=== PATIENT | female | born 1970 | race Caucasian/White ===

== ENCOUNTER 2022-06-12 09:51 | Emergency (ER) | payer BC, SELFPAY ==
[2022-06-12 11:11] VITALS: BP 151/92; PULSE 97; RESP 14; TEMP 36.4; O2SAT 97; BMI 34.3
[2022-06-12 12:00] VITALS: BP 151/92; PULSE 97; RESP 14; TEMP 36.4; O2SAT 97
[2022-06-12 12:32] LABS: Add Urine Microscopic? NO; Charge for UA Resulting for Rev
[2022-06-12 12:33] LABS: Bilirubin Urine Neg (Negative); Blood Urine Neg (Negative); Glucose Urine UA Norm (Normal); Ketones Urine Negative (Negative); Leukocyte Esterase Urine Negative (Negative); Nitrate Urine Negative (Negative); Protein Urine Neg (Negative); Urine Appearance Clear (CLEAR); Urine Color Yellow (Yellow); Urobilinogen Urine Norm (Negative); pH Urine 7 (5-7)
[2022-06-12] MEDS: ondansetron 2 mg/ML SDV 2 mL 4 MG IVP (12:38)
[2022-06-12] MEDS: sodium chloride 0.9% 1,000 ML 999 ML IV (12:38)
--- NOTE | 2022-06-12 12:38 | CT_ITS ---
WS: [id number] CT ABDOMEN PELVIS TECHNIQUE: Noncontrast CT of the abdomen and pelvis with coronal and sagittal reformatted images. CLINICAL INFORMATION: Abdominal pain COMPARISON: CT 2017 DLP: 849.[address] scans at [facility] use at least one of these dose optimization techniques: automated e xposure control; mA and/or kV adjustment per patient size (includes targeted exams where dose is matc hed to clinical indication); or iterative reconstruction. FINDINGS: Normal appendix in the RIGHT lower quadrant. No hydronephrosis in either kidney. No obstructing renal or ureteral calculi. Pelvic phleboliths. Lung bases are well aerated. Slight bibasilar atelectasis. Noncontrast liver and spleen are normal. Normal noncontrast pancreas. Normal GE junction. Normal caliber abdominal aorta. Normal sigmoid colon. Sigmoid diverticulosis. No evidence of acute diverticulitis. No evidence of high-grade small or large bowel obstruction. No free fluid in the abdomen or pelvis. CT/CT abdomen pelvis con [id number] IMPRESSION: 1. Normal appendix in the RIGHT lower quadrant. No evidence of acute appendici tis. 2. No hydronephrosis in either kidney. No obstructing renal or ureteral calcul i. 3. Sigmoid diverticulosis. No evidence of acute diverticulitis. 4. No other acute findings.
--- NOTE | 2022-06-12 12:43 | W.ED.ABDPA2 ---
HPI - Abdominal Pain General: Chief Complaint: Abdominal Pain Stated Complaint: abd pain Time Seen by Provider: 06/12/22 12:10 Source: patient Mode of arrival: ambulatory History of Present Illness: 52-year-old female presents emergency room complaining of right lower quadrant abdominal pain. Patient denies any fever sweats chills dysuria urgency or frequency. No vomiting or diarrhea. She is previous had a tubal ligation and has an subsequent hysterectomy has not had appendectomy or cholecystectomy. Remaining still seems to relieve the pain any movement or palpation worsens it. MD elicited complaint: abdominal pain Onset (ago): day(s) Pain Consistency: intermittent Location: RLQ Severity: moderate Quality: cramping Radiation: none Exacerbating factors: movement Relieving factors: rest Associated Symptoms: Reports nausea and poor appetite; Denies anorexia, belching, bloating, change in bowel habits, change in stool character, chills, coffee ground emesis, constipation, GI cramping, diarrhea, dyspepsia, dysuria, excessive flatus, fever(s), heartburn, hematochezia, hematuria, hematemesis, fecal incontinence, loose stools, melena, syncope and vomiting Review of Systems Const: Denies: fever(s) or chills ENMT: Denies: throat pain, ear or mastoid pain, nasal discharge or nasal congestion Card: Denies: syncope Resp: Denies: dyspnea, productive cough or non-productive cough GI: Reports: abdominal pain and nausea; Denies: vomiting, hematemesis, coffee ground emesis, heartburn, diarrhea, constipation, bloating, GI cramping, belching, excessive flatus, fecal incontinence, change in bowel habits, change in stool character, hematochezia or melena : Denies: dysuria, urinary frequency, urinary urgency or hematuria Skin/Breast: Denies: rash or pruritus PFSH ED PFSH: Surgical History (Updated 06/12/22 @ 17:22 by Walter Hayes DO) H/O tubal ligation H/O: hysterectomy Social History (Updated 06/12/22 @ 17:23 by Walter Hayes DO) Smoking and tobacco status: current every day smoker Alcohol intake: current Alcohol intake frequency: holidays/special occasions only Physical Exam Const: COMMON NORMALS: no acute distress GENERAL APPEARANCE: cooperative and comfortable ORIENTATION/CONSCIOUSNESS: Yes awake, Yes oriented to person, Yes oriented to place and Yes oriented to time HENMT: COMMON NORMALS: normocephalic, atraumatic and hearing grossly normal bilaterally HEAD & SCALP: normocephalic and atraumatic Resp: COMMON NORMALS: normal respiratory effort, No retractions, No use of accessory muscles and clear to auscultation bilaterally AUSCULTATION: clear to auscultation bilaterally Cardio: COMMON NORMALS: regular rate, regular rhythm and No murmurs present (Cardio) RATE: regular rate RHYTHM: regular rhythm GI: COMMON NORMALS: No hepatosplenomegaly present AUSCULTATION: Yes normoactive bowel sounds PALPATION: Yes Tenderness to palpation present (GI) Details: RLQ, No Guarding due to palpation present (GI) and Yes No hepatosplenomegaly present Extremity: COMMON NORMALS: normal to inspection, capillary refill normal, no clubbing, cyanosis or edema, no calf tenderness and no pedal edema Neuro: SENSORIUM/ORIENTATION: Yes oriented to person, Yes oriented to place and Yes oriented to time Skin: COMMON NORMALS: no rashes or lesions noted GENERAL SKIN EXAM: no rashes or lesions noted Course Vital Signs: Vital signs: Vital Signs Temperature 97.6 F 06/12/22 12:00 Pulse Rate 97 06/12/22 14:31 Respiratory Rate 14 06/12/22 14:31 Blood Pressure 151/92 06/12/22 14:31 Pulse Oximetry 97 06/12/22 14:31 Oxygen Delivery Me thod 06/12/22 12:00 MDM - Abdominal Pain Medical Decision Making Patient has pain in the right lower quadrant CT is negative White count is normal urine is negative. Discharge patient will if she has any worsening symptoms return to the emergency room. Medical Records I reviewed the patient's medical records. Lab Data I reviewed the patient's lab results. 06/12/22 12:44 06/12/22 12:44 Labs/Radiology: Radiology Impressions Abdomen/Pelvis CT 06/12/22 12:38 IMPRESSION: 1. Normal appendix in the RIGHT lower quadrant. No evidence of acute appendicitis. 2. No hydronephrosis in either kidney. No obstructing renal or ureteral calculi. 3. Sigmoid diverticulosis. No evidence of acute diverticulitis. 4. No other acute findings. Laboratory Results WBC 8.0 10^3/uL (4.0-10.0) 06/12/22 12:44 RBC 5.24 10^6/uL (4.1-5.3) 06/12/22 12:44 Hgb 15.0 g/dL (11.5-15.3) 06/12/22 12:44 Hct 45.4 % (37.0-47.0) 06/12/22 12:44 MCV 86.6 fl (81-99) 06/12/22 12:44 MCH 28.6 pg (28.0-34.0) 06/12/22 12:44 MCHC 33.0 g/dL (30.0-36.0) 06/12/22 12:44 RDW 12.9 % (12.1-15.1) 06/12/22 12:44 Plt Count 205 10^3/cmm (130-400) 06/12/22 12:44 MPV 11.6 fL (7.4-10.4) H 06/12/22 12:44 Neut % (Auto) 51.3 % 06/12/22 12:44 Lymph % (Auto) 42.5 % 06/12/22 12:44 Galax % (Auto) 5.4 % 06/12/22 12:44 Eos % (Auto) 0.0 % 06/12/22 12:44 Baso % (Auto) 0.5 % 06/12/22 12:44 Neut # (Auto) 4.09 10^3/uL (1.8-7.7) 06/12/22 12:44 Lymph # (Auto) 3.4 10^3/uL (0.8-4.8) 06/12/22 12:44 Galax # (Auto) 0.4 10^3/uL (0.2-0.9) 06/12/22 12:44 Eos # (Auto) 0.0 10^3/uL (0.0-0.8) 06/12/22 12:44 Baso # (Auto) 0.0 10^3/uL (0.0-0.1) 06/12/22 12:44 Nucleated RBC % (auto) 0 % 06/12/22 12:44 Nucleated RBCs # 0.0 /100WBC 06/12/22 12:44 Sodium 139 mmol/L (136-145) 12/26/22 12:44 Potassium 3.7 mmol/L (3.5-5.1) 06/12/22 12:44 Chloride 103 mmol/L (98-107) 06/12/22 12:44 Carbon Dioxide 25 mmol/L (22-29) 06/12/22 12:44 Anion Gap 14.7 (5-19) 06/12/22 12:44 BUN 10 mg/dL (6-20) 06/12/22 12:44 Creatinine 0.7 mg/dL (0.5-0.9) 06/12/22 12:44 GFR Calculation 88.2 mL/min (90-130) L 06/12/22 12:44 Glucose 89 mg/dL (65-115) 06/12/22 12:44 Calculated Osmolality 287 mOsm/kg (285-295) 06/12/22 12:44 Calcium 9.4 mg/dL (8.5-10.5) 06/12/22 12:44 Total Bilirubin 0.3 mg/dL (0.15-1.2) 06/12/22 12:44 AST 16 U/L (0-32) 06/12/22 12:44 ALT 12 U/L (0-33) 06/12/22 12:44 Alkaline Phosphatase 87 U/L (35-105) 06/12/22 12:44 Total Protein 7.5 g/dL (6.6-8.7) 06/12/22 12:44 Albumin 4.6 g/dL (3.5-5.2) 06/12/22 12:44 Globulin 2.9 g/dL (1.3-4.6) 06/12/22 12:44 Lipase 21 U/L (13-60) 06/12/22 12:44 Urine Color Yellow (Yellow) 06/12/22 12:25 Urine Appearance Clear (CLEAR) 06/12/22 12:25 Urine pH 7 (5-7) 06/12/22 12:25 Ur Specific Humphrey 1.010 (1.005-1.030) 06/12/22 12:25 Urine Protein Neg (Negative) 06/12/22 12:25 Urine Glucose (UA) Norm (Normal) 06/12/22 12:25 Urine Ketones Negative (Negative) 06/12/22 12:25 Urine Blood Neg (Negative) 06/12/22 12:25 Urine Nitrate Negative (Negative) 06/12/22 12:25 Urine Bilirubin Neg (Negative) 06/12/22 12:25 Urine Urobilinogen Norm mg/dL (Negative) 06/12/22 12:25 Ur Leukocyte Esterase Negative (Negative) 06/12/22 12:25 Discharge Plan Discharge Patient Disposition: Home Clinical Impression: Abdominal pain, Back pain Condition: Stable Prescriptions: New diclofenac sodium 75 mg tablet,delayed release (DR/EC) 75 mg PO Q12H PRN (Reason: pain) Qty: 20 0RF Discharge Orders: Discharge ED (Routine); Ordered 06/12/22 Ordered By: Walter Hayes Referrals: Jesus Rob MD [Primary Care Provider] - Patient Instructions: Abdominal Pain (ED), Opioid Safety, Pain Management Activity Restrictions/Additional Instructions: You are seen today for abdominal pain. Your CT was normal your liver functions and white count were also normal as was the urinalysis. Suspect this is more musculoskeletal in nature you can try the diclofenac 1 every 12 hours as needed if not improving follow-up with your primary care doctor. Coding Level of Care Code ED New Business Clerk for Chg Fwd Exam Detailed
[2022-06-12 12:56] LABS: Basophils % 0.5 %; Hematocrit 45.4 % (37.0-47.0); Lymphocytes # 3.4 10^3/uL (0.8-4.8); Lymphocytes % 42.5 %; Mean Corpuscular Hemoglobin 28.6 pg (28.0-34.0); Mean Corpuscular Volume 86.6 fl (81-99); Mean Platelet Volume 11.6 fL (7.4-10.4); Monocytes # 0.4 10^3/uL (0.2-0.9); Monocytes % 5.4 %; Neutrophils # 4.09 10^3/uL (1.8-7.7); Neutrophils % 51.3 %; Nucleated Red Blood Cells % 0 %; Platelet Count 205 10^3/cmm (130-400); Red Blood Count 5.24 10^6/uL (4.1-5.3); Red Cell Distribution Width 12.9 % (12.1-15.1)
[2022-06-12 13:13] LABS: Alanine Aminotransferase 12 U/L (0-33); Albumin Level 4.6 g/dL (3.5-5.2); Alkaline Phosphatase 87 U/L (35-105); Anion Gap 14.7 (5-19); Aspartate Amino Transferase 16 U/L (0-32); Blood Urea Nitrogen 10 mg/dL (6-20); Calcium 9.4 mg/dL (8.5-10.5); Carbon Dioxide 25 mmol/L (22-29); Chloride 103 mmol/L (98-107); Creatinine Clr Calc Pharmacy 103.7294; Globulin 2.9 g/dL (1.3-4.6); Glomerular Filtration Rate 88.2 mL/min (90-130); Glucose 89 mg/dL (65-115); Lipase 21 U/L (13-60); Osmolality Calculated 287 mOsm/kg (285-295); Potassium 3.7 mmol/L (3.5-5.1); Sodium 139 mmol/L (136-145); Total Bilirubin 0.3 mg/dL (0.15-1.2); Total Protein 7.5 g/dL (6.6-8.7)
[2022-06-12 14:31] VITALS: BP 151/92; PULSE 97; RESP 14; O2SAT 97
== END 2022-06-12 14:35 | disposition home or self-care (01) ==
PROVIDERS: Emergency Provider Family Medicine; PCP Family Medicine
DX: R10.31 Right lower quadrant pain (principal); M54.9 Dorsalgia, unspecified; F17.210 Nicotine dependence, cigarettes, uncomplicated
CPT/HCPCS: 74176; 80053; 81003; 83690; 85025; 96361; 96374; 99285; J2405; J7030

== ENCOUNTER 2025-02-23 18:09 | Emergency (ER) | payer SELFPAY ==
--- OUTSIDE RECORDS SUMMARY | 2025-02-23 18:16 | XMS_ITS | Encounter Summary ---
Author Organization [facility] Address [address] [place] [address] Care Team Providers Care Director Software Quality Assurance Name Role Phone Jesus Rob MD Primary Care Provider [phone] Encounter Details Date Type Department Care Team (Latest Contact Info) Description 05/04/2000 Outpatient Historical HIS [facility] Miguel Quiñones NO ADDRESS ON FILE Cervicalgia (Primary Dx); Goiter, unspecified Social History Tobacco Use Types Packs/Day Years Used Date Smoking Tobacco: Never Assessed Comments Unknown Sex and Gender Information Value Date Recorded Sex Assigned at Not on file 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
--- OUTSIDE RECORDS SUMMARY | 2025-02-23 18:16 | XMS_ITS | Clinical Summary ---
Author Organization [facility] Address [address] [place] [address] Care Team Providers Care International Marketing Specialist Name Role Phone Jesus Rob MD Primary Care Provider [phone] Allergies No known active allergies Medications acetaminophen (TYLENOL) 500 mg tablet Take 1,000 mg by mouth every 6 hours as needed. Active Active Problems No known active problems Family History Medical History Relation Name Comments Heart Disease Father Hypertension Father Kidney Disease Father No Known Problems Mother Cancer Sister 1 cervical Cancer Sister 5 cervical No Known Problems Son 1 No Known Problems Son 2 No Known Problems Son 3 Breast Cancer Neg Hx Relation Name Status Comments Brother 1 Alive Brother 2 Alive Brother 3 Alive Father Alive Mother Alive Sister 1 Alive Sister 2 Alive Sister 3 Alive Sister 4 Alive Sister 5 Alive Sister 6 Alive Sister 7 Alive Son 1 Alive Son 2 Alive Son 3 Alive Social History Tobacco Use Types Packs/Day Years Used Date Smoking Tobacco: Every Day Cigarettes 1 30 Smokeless Tobacco: Never Tobacco Cessation:Ready to Q uit: Yes Alcohol Use Standard Drinks/Week Comments Not Currently 0 (1 standard drink = 0.6 oz pur e alcohol) Comments No Sex and Gender Information Value Date Recorded Sex Assigned at Not on file 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 Gender Identity Not on file Sexual Orientation Not on file Last Filed Vital Signs Vital Sign Reading Time Taken Comments Blood Pressure 123/88 02/27/2020 10:14 AM CDT Pulse 73 02/27/2020 10:14 AM CDT Temperature 36.4 C (97.6 F) 03/31/2019 3:34 PM CDT Respiratory Rate 18 03/31/2019 4:25 PM CDT Oxygen Saturation 97% 02/27/2020 10:14 AM CDT Inhaled Oxygen Concentration - - Weight 83 kg (183 lb) 02/27/2020 10:14 AM CDT Height 162.6 cm (5' 4 ) 02/27/2020 10:14 AM CDT Body Mass Index 31.41 02/27/2020 10:14 AM CDT Plan of Treatment Health Maintenance Due Date Last Done Comments DTAP/TDAP/TD VACCINES (1 - Tdap) 1990 HEPATITIS B VACCINES (1 of 3 - 19+ 3-dose series) 04/19 HPV/Cotest (21-29) 1992 HPV/Cotest (30-65) 2001 CERVICAL CANCER SCREENING 04/24/2004 PAP SMEAR 04/24/2004 04/24/2001 BREAST CANCER SCREENING 2011 COLORECTAL SCREENING 2016 Colorectal Cancer Screening 2016 FIT-DNA Q 3 years 2016 FIT/FOBT Q 1 year 2016 Flex Sig/CT Colonography Q 5 years 2016 ZOSTER VACCINE (1 of 2) 2021 INFLUENZA VACCINE (#1) 2025 Medical Devices Implanted Type Area Barrel Tester Device Identifier Shelf Expiration Date Model / Serial / Lot Mammary Saline 600-720ml 350-2600 - [id number] Implanted:Qty: 1 on 03/31/2019 by Alka Tong MD at [facility] Mammary Right: Breast MENTOR MARGARITA 08/13/2022 350-2600 / [id number] Description:625mlof injectab le 0.9% sodium chloride Mammary Saline 600-720ml 350-2600 - [id number] Implanted:Qty: 1 on 03/31/2019 by Alka Tong MD at [facility] Mammary Left: Breast MENTOR MARGARITA 11/11/2022 350-2600 / [id number] Description:650mL of injecta ble 0.9% sodium chloride Insurance Advance Directives For more information, please contact: [phone] * Full Code (Latest Code Status on File) Date Activated Date Inactivated Comments 03/31/2019 12:02 PM 03/31/2019 7:03 PM Care Teams International Marketing Specialist Relationship Specialty Start Date End Date Jesus Rob MD [address] [phone] PCP - General Family Practice 03/25/19
--- OUTSIDE RECORDS SUMMARY | 2025-02-23 18:16 | XMS_ITS | Encounter Summary ---
Author Organization [employer] [facility] Address [address] [place] [address] Care [address] Project Manager Name Role Phone Jesus Rob MD Primary Care Provider [phone] Encounter Details Date Type Department Care Team (Latest Contact Info) Description 10/08/2000 Outpatient Historical HIS [facility] Miguel Quiñones NO ADDRESS ON FILE Periapical abscess (Primary Dx) Social History Tobacco Use Types Packs/Day Years Used Date Smoking Tobacco: Never Assessed Comments Unknown Sex and Gender Information Value Date Recorded Sex Assigned at Not on file 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
--- OUTSIDE RECORDS SUMMARY | 2025-02-23 18:17 | XMS_ITS | Clinical Summary ---
Author Organization [facility] Address [address] [facility] Attn: Epic Prelude ADT [place]DA [phone] Care Team Providers Care Binder Lockstitch Name Role Phone Jesus Rob MD Primary Care Provider [phone] Allergies No known active allergies Medications acetaminophen (TYLENOL) 500 mg tablet Take 1,000 mg by mouth every 6 hours as needed. 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 Gender Identity Not on file Sexual Orientation Not on file Last Filed Vital Signs Vital Sign Reading Time Taken Comments Blood Pressure 123/88 02/27/2020 10:14 AM CDT Pulse 73 02/27/2020 10:14 AM CDT Temperature 36.4 C (97.6 F) 03/31/2019 3:34 PM CDT Respiratory Rate 18 03/31/2019 4:25 PM CDT Oxygen Saturation - - Inhaled Oxygen Concentration - - Weight 83 kg (183 lb) 02/27/2020 10:14 AM CDT Height 162.6 cm (5' 4 ) 02/27/2020 10:14 AM CDT Body Mass Index 31.41 02/27/2020 10:14 AM CDT Plan of Treatment Health Maintenance Due Date Last Done Comments DTAP/TDAP/TD VACCINES (1 - Tdap) 1990 HEPATITIS B VACCINES (1 of 3 - 19+ 3-dose series) 04/19 HPV/Cotest (21-29) 1992 CERVICAL CANCER SCREENING 2001 HPV/Cotest (30-65) 2001 PAP SMEAR 2001 BREAST CANCER SCREENING 2011 COLORECTAL SCREENING 2016 Colorectal Cancer Screening 2016 FIT-DNA Q 3 years 2016 FIT/FOBT Q 1 year 2016 Flex Sig/CT Colonography Q 5 years 2016 ZOSTER VACCINE (1 of 2) 2021 INFLUENZA VACCINE (#1) 2025 Medical Devices Implanted Type Area Certified Medical Transcriptionist Device Identifier Shelf Expiration Date Model / Serial / Lot Mammary Saline 600-720ml 350-2600 - [id number] Implanted:Qty: 1 on 03/31/2019 by Alka Tong MD Mammary Right: Breast MENTOR MARGARITA 08/13/2022 350-2600 / [id number] Description:625mlof injectab le 0.9% sodium chloride Mammary Saline 600-720ml 350-2600 - [id number] Implanted:Qty: 1 on 03/31/2019 by Alka Tong MD Mammary Left: Breast MENTOR MARGARITA 11/11/2022 350-2600 / [id number] Description:650mL of injecta ble 0.9% sodium chloride Care Teams Binder Lockstitch Relationship Specialty Start Date End Date Jesus Rob MD [address] [place] [phone] PCP - General Family Practice 03/25/19
--- OUTSIDE RECORDS SUMMARY | 2025-02-23 18:17 | XMS_ITS | Encounter Summary ---
Author Organization [employer] [facility] Address [address] [place] [address] Care Team Providers Care Infrastructure Manager Name Role Phone Jesus Rob MD Primary Care Provider [phone] Encounter Details Date Type Department Care Team (Latest Contact Info) Description 04/24/2001 Outpatient Historical HIS [facility] Durga Hauser MD [address] [place] [address] CARBUNCLE NOS (Primary Dx); TOBACCO USE DISORDER; SCREENING MAL NEOP-CERVIX; SCREENING MAL NEOP-SITE NEC Social History Tobacco Use Types Packs/Day Years Used Date Smoking Tobacco: Never Assessed Comments Unknown Sex and Gender Information Value Date Recorded Sex Assigned at Not on file 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
[2025-02-23 18:41] VITALS: BP 149/85; PULSE 94; TEMP 36.8; O2SAT 96
--- NOTE | 2025-02-23 20:17 | CTR_ITS ---
PROCEDURE INFORMATION: Exam: CT Head Without Contrast Exam date and time: 02/23/2025 8:26 PM Age: 54 years old Clinical indication: Pain; Headache not specified; Additional info: PAEZ TECHNIQUE: Imaging protocol: Computed tomography of the head without contrast. Radiation optimization: All CT scans at this facility use at least one of these dose optimization techniques: automated exposure control; mA and/or kV adjustment per patient size (includes targeted exams where dose is matched to clinical indication); or iterative reconstruction. COMPARISON: No relevant prior studies available. RADIATION DOSE METRICS: Total DLP (mGy-cm): 1106.98 FINDINGS: Brain: Normal. No hemorrhage. Unremarkable white matter. No mass effect. Cerebral ventricles: No ventriculomegaly. Paranasal sinuses: Visualized sinuses are unremarkable. No fluid levels. Mastoid air cells: Visualized mastoid air cells are well aerated. Bones: Unremarkable. No acute fracture. Soft tissues: Unremarkable. CT/CT head wo con* [id number] IMPRESSION: No acute intracranial abnormality.
--- NOTE | 2025-02-23 20:17 | ECG_ITS ---
[facility] Test Date: 2025-02-23 Pat Name: Sujey Singh Department: Room: Gender: Female Physical Geographer: : 1970 Requested By: Eddie De Los Santos Order Number: [id number] Santillan MD: Deepak Aponte M.D. Measurements Intervals [place] Rate: 77 P: 60 SC: 131 QRS: 47 QRSD: 86 T: 68 QT: 401 QTc: 456 Interpretive Statements SINUS RHYTHM No previous ECG available for comparison Electronically Signed On 02-25-2025 23:14:30 CDT by Deepak Aponte M.D. [email or web address] [id number]
--- NOTE | 2025-02-23 20:19 | ED_ITS ---
HPI - Headache General: Chief Complaint: Headache Stated Complaint: Urgent Care Sent\Blood Clot Rt Eye Time Seen by Provider: 02/23/25 19:52 Source: patient Mode of arrival: ambulatory Limitations: no limitations History of Present Illness: 54-year-old female states that at 4:00 t diana she was driving she states she had a period where she had a headache and then had vision loss in both eyes. She states that lasted for a minute or 2 and she has got her vision back she states she still feels like she has some blurry vision in the right eye does have a headache that on the right side as well currently she rates a 4 out of 10 has had a history of migraine in the past she denies any slurred speech any weakness any other symptoms. Associated symptoms: Deny chest pain, fever(s), nausea, rash or vomiting Related Data Previous Rx's ?Medication ?Instructions ?Recorded diclofenac sodium 75 mg 75 mg PO Q12H PRN pain #20 t abs 06/12/22 tablet,delayed release aspirin 81 mg capsule 81 mg PO DAILY #30 caps 02/09 Allergies Allergy/AdvReac Type Severity Reaction Status Date / Time No Known Allergies Allergy Verified 02/23/25 18:47 Review of Systems Const: Denies: fever(s), chills, body aches or change in appetite ENMT: Denies: throat pain or dental pain Card: Denies: chest pain Resp: Denies: dyspnea GI: Denies: abdominal pain, nausea, vomiting or diarrhea Musc: Denies: neck pain or back pain Skin/Breast: Denies: rash Neuro: Reports: headache(s) PFSH ED PFSH: Surgical History (Updated 06/12/22 @ 17:22 by Walter Hayes DO) H/O: hysterectomy H/O tubal ligation Social History (Updated 06/12/22 @ 17:23 by Walter Hayes DO) Smoking and tobacco/nicotine status: current every day tobacco/nicotine user Alcohol intake: current Alcohol intake frequency: holidays/special occasions only Physical Exam Const: COMMON NORMALS: no acute distress, patient oriented x3 and healthy appearing HENMT: COMMON NORMALS: normocephalic and atraumatic HEAD & SCALP: normo cephalic and atraumatic Eye: COMMON NORMALS: conjunctivae normal CONJUNCTIVA: Yes conjunctivae normal Neck/C-Spine: COMMON NORMALS: full ROM and supple Chest: COMMONS NORMALS: normal inspection of the chest Resp: COMMON NORMALS: normal respiratory effort, No retractions, No use of accessory muscles and clear to auscultation bilaterally AUSCULTATION: clear to auscultation bilaterally Cardio: COMMON NORMALS: regular rate, regular rhythm and No murmurs present (Cardio) RATE: regular rate RHYTHM: regular rhythm Extremity: COMMON NORMALS: normal to inspection and full ROM Neuro: COMMON NORMALS: patient oriented x3, moves all extremities and no focal motor deficits Psych: COMMON NORMALS: mental status grossly normal, Normal thought process present and cooperative THOUGHT PROCESS: Normal thought process present Skin: COMMON NORMALS: no rashes or lesions noted and no wounds GENERAL SKIN EXAM: no rashes or lesions noted Course Vital Signs: Vital signs: Vital Signs Temperature 98.2 F 02/23/25 18:41 Pulse Rate 94 02/23/25 18:41 Blood Pressure 149/85 02/23/25 18:41 Pulse Oximetry 96 02/23/25 18:41 Oxygen Delivery Me thod Room Air 02/23/25 18:41 MDM - Headache Medical Decision Making Patient presents here with period of blindness both eyes lasted short time she did have a headache her neuroexam here is benign vision is back to normal here visual acuity was normal she has no signs of giant cell arteritis no signs of tenderness on the right side of her head or the left Medical Records I reviewed the patient's medical records. Lab Data I reviewed the patient's lab results. Radiology Impressions Head CT 02/23/25 20:17 IMPRESSION: No acute intracranial abnormality. All radiology interpretation(s) finalized by discharge EKG Data EKG 1: I personally reviewed and interpreted this EKG as follows: EKG interpretation date: 02/23/25 EKG interpretation time: 20:17 Interpretation: nsr hr [address] elevation qrs 86 qtc 433 Discharge Plan Discharge Patient Disposition: Home Clinical Impression: Headache, Amaurosis fugax, both eyes Condition: Stable Prescriptions: New aspirin 81 mg capsule 81 mg PO DAILY Qty: 30 0RF No Action diclofenac sodium 75 mg tablet,delayed release (DR/EC) 75 mg PO Q12H PRN (Reason: pain) Qty: 20 0RF Discharge Orders: Discharge ED (Routine); Ordered 02/23/25 Ordered By: Eddie De Los Santos Referrals: [facility] [Outside] - 4-7 days Grecia Rob PA [Primary Care Provider, [facility] [employer]] Discharge Diet: Advance as tolerated Discharge Activity: Resume usual activity Patient Instructions: Acute Headache (ED) Print Language: Lao Coding Level of Care Code ED 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
--- NOTE | 2025-02-23 20:54 | PC.NURSE ---
visiual acuity test, right eye blurred 20/40, left eye clear 20/20.
== END 2025-02-23 21:05 | disposition home or self-care (01) ==
PROVIDERS: Emergency Provider Emergency Medicine; PCP Physician Assistant
DX: R51.9 Headache, unspecified (principal); G45.3 Amaurosis fugax; Z72.0 Tobacco use
CPT/HCPCS: 70450; 93005; 99284

== ENCOUNTER 2025-04-03 06:02 | Outpatient (CLI) | payer BC, MEDICAID, SELFPAY ==
--- NOTE | 2025-04-03 06:15 | USCV_ITS ---
Sujey Singh Age: 54 Gender: F : 1970 Exam Date: 04/03/2025 06:36 Ordering Phys: Grecia Rob Technologist: Moustapha Hodges [place] [facility] [place]: amaurosis fugax BP: 149 / 85 HR: 70 Rhythm: Sinus Technical Quality: Adequate MEASUREMENTS (Male / Female) Normal Values 2D ECHO LV Diastolic Diameter PLAX 4.1 cm 4.2 - 5.9 / 3.9 - 5.3 cm IVS Diastolic Thickness 0.9 cm 0.6 - 1.0 / 0.6 - 0.9 cm IVS Systolic Thickness 1.1 cm LVPW Diastolic Thickness 1.0 cm 0.6 - 1.0 / 0.6 - 0.9 cm LVPW Systolic Thickness 1.6 cm LVOT Diameter 2.1 cm LV Ejection Fraction 2D Teich 56.4 % LV Ejection Fraction MOD 4C 63.4 % LV Ejection Fraction MOD 2C 65.7 % LV Ejection Fraction 2C AL 65.9 % LA Diameter 3.2 cm RA Systolic Volume 4C AL 30.4 ml RA Systolic Volume 4C MOD 29.8 ml LA Sys Volume AL 42.4 cm cubed LA Sys Volume Index AL 21.2 cm cubed/m squared Aorta at Sinotubular Diameter 2.3 cm IVC Diameter 1.3 cm M-MODE LA Ao Ratio MM 1.4 AV Cusp Separation MM 1.7 cm DOPPLER AV Peak Velocity 113.0 cm/s LVOT Peak Velocity 86.0 cm/s AV Area Cont Eq vti 2.4 cm squared AV Area Cont Eq pk 2.6 cm squared MV Peak Velocity 91.0 cm/s MV Area PHT 6.1 cm squared Mitral E to A Ratio 0.8 PV Peak Velocity 84.7 cm/s RV Ejection Time 0.3 s FINDINGS Left Ventricle Normal left ventricular size, systolic function and wall thickness with no regional wall motion abnormality. Left ventricular ejection fraction is 65%. Normal left ventricular diastolic function. Right Ventricle Normal right ventricular size and systolic function. RVSP could not be calculated due to incomplete tricuspid regurgitation velocity profile. Right Atrium Normal right atrial size. Left Atrium Normal left atrial size. IA Septum Normal appearance of the interatrial septum. Mitral Valve Normal mitral valve structure. No mitral valve stenosis. Trace regurgitation. Aortic Valve Normal aortic valve structure. No aortic valve stenosis or regurgitation. Tricuspid Valve Normal tricuspid valve structure. No tricuspid valve stenosis or regurgitation. Pulmonic Valve Normal pulmonic valve structure. No pulmonic valve stenosis or regurgitation. Pericardium No pericardial effusion. Aorta Normal diameter of the aortic root and ascending thoracic aorta. IVC Normal IVC diameter. CONCLUSIONS Normal left ventricular size, systolic function and wall thickness with ejection fraction of 65%. Normal right ventricular size and systolic function. No significant valvular abnormalities. No vegetations or cardiac masses. Deepak Aponte MD, FACC (Electronically Signed) Final Date: 04 April 2025 18:30 S
== END 2025-04-03 06:03 | disposition home or self-care (01) ==
LOC: RAD 06:05
PROVIDERS: PCP Physician Assistant; Visit Provider Physician Assistant
DX: G45.3 Amaurosis fugax (principal)
CPT/HCPCS: 93306

== ENCOUNTER 2025-04-15 11:38 | Outpatient (CLI) | payer BC, MEDICAID, SELFPAY ==
--- NOTE | 2025-04-15 11:43 | MR_ITS ---
WS: [id number] MRA HEAD TECHNIQUE: Axial 3-D TOF images obtained with axial images and axial, sagittal, and coronal 2-D reformatted images. CLINICAL INFORMATION: AMAUROSIS FUGAX COMPARISON: CT 02/23/2025 FINDINGS: Distal vertebrals are patent. Basilar artery is patent. Normal vascularity to the GEOMAGNETIST territory bilaterally. Patent LEFT posterior communicating artery. Both ICAs are patent at the skull base. Normal vascularity to the EVELINA and MCA territories bilaterally. No evidence of proximal flow-limiting stenosis or aneurysm. MR/MR angio head con [id number] IMPRESSION: 1. Normal intracranial MRA
== END 2025-04-15 11:39 | disposition home or self-care (01) ==
LOC: RAD 11:40
PROVIDERS: PCP Physician Assistant; Visit Provider Physician Assistant
DX: G45.3 Amaurosis fugax (principal)
CPT/HCPCS: 70544